=== PATIENT | male | born 1960 | race Caucasian/White ===

== ENCOUNTER 2016-10-05 07:29 | Day surgery (SDC) | payer MEDICARE, MEDICAID ==
[~2016-10-05 07:29] MED LIST: Buffered Lidocaine 1% SYRIN* 3 ML/SYR SYRINGE INTRADERM ONE
[2016-10-05] MEDS ORDERED: ceFAZolin VIAL(*) 1 GM VIAL ONE (07:45)
[2016-10-05] MEDS ORDERED: ceFAZolin 2 GM PREMIX(*) 2 GM/50 ML BAG IVPB ONE (07:46)
[2016-10-05] MEDS ORDERED: Dexamethasone IV* 4 MG/ML 1 ML (4 MG) ONE ×3 (08:59→09:05)
[2016-10-05] MEDS ORDERED: Bacitracin OINTMENT* 1 TUBE ONE ×2 (08:59→09:03)
[2016-10-05] MEDS ORDERED: Lidocaine 1% INJ* 10 MG/ML 30 ML SDV ONE (09:03)
[2016-10-05] MEDS ORDERED: Bupivacaine 0.5% SDV PF* 30 ML VIAL ONE (09:03)
[2016-10-05] MEDS ORDERED: Midazolam* 1 MG/ML 2 ML VIAL (2 MG) ONE (09:18)
[2016-10-05] MEDS ORDERED: fentaNYL* 50 MCG/ML 2 ML VIAL (100 MCG VIAL) ONE (09:18)
[2016-10-05] MEDS ORDERED: Propofol* 10 MG/ML 20 ML BTL IV PUSH ONE (10:08)
[2016-10-05 10:39] VITALS: BP 110/66
--- NOTE | 2016-10-05 16:02 | RAD ---
INDICATION: Excision of bone spur right great toe and fusion of the right great toe COMPARISONS: None relevant TECHNIQUE: Fluoroscopy was provided for a surgical procedure. Total fluoroscopy time is: 18 seconds FINDINGS: Spot images demonstrate fusion across the first interphalangeal joint IMPRESSION: FLUOROSCOPY WAS PROVIDED FOR A SURGICAL PROCEDURE CPT II Codes: 6045F
--- NOTE | 2016-10-05 21:48 | OP ---
DATE OF OPERATION: 10/05/16 - [facility] DATE OF : 64 SURGEON: Sameer Haddad DPM SUBMARINE OPERATOR: None. ANESTHESIOLOGIST: Jorge Booth DO ANESTHESIA: MAC with local. PRE-OP DIAGNOSES: 1. Chronic ulceration to the plantar aspect of his right great toe. 2. Bone spur and degenerative changes of the interphalangeal joint of the right great toe. POST-OP DIAGNOSES: 1. Chronic ulceration to the plantar aspect of his right great toe. 2. Bone spur and degenerative changes of the interphalangeal joint of the right great toe. OPERATIVE PROCEDURE: 1. Excision of bone spur from the plantar aspect of the interphalangeal joint of the right great toe. 2. Arthrodesis of the right great toe with screw fixation. PATHOLOGY: Degenerative bone and osteophyte proliferation. HEMOSTASIS: Pneumatic ankle tourniquet. ESTIMATED BLOOD LOSS: Less than 5 cc. SPECIMEN: Degenerative bone and bone spur from the plantar aspect of the right great toe. MATERIALS: A partially threaded cannulated 4.0 mm Becca screw. INDICATIONS: The patient with chronic ulceration in the plantar aspect of his right great toe with history of infection, which has been successfully treated by wound care center with Dr. Olea. The wound ulcer is currently closed and there is no active infection, but this has been an ongoing problem in recent radiographs, clinical findings and his peripheral neuropathy, there is excessive pressure in bone spur proliferation in the plantar aspect of the interphalangeal joint and surgery needed to attempt to decrease pressure and offload this area to prevent recurrence of the ulceration and possible infection. DESCRIPTION OF PROCEDURE: The patient was brought to the operating room, placed on the operating room table in the supine position. The anesthesia department administered IV sedation and a peripheral nerve block was performed about the right foot with a 1:1 mixture of 1% lidocaine plain and 0.5% Marcaine plain. The right foot was prepped and draped in the usual fashion. The right foot was then exsanguinated with an Esmarch bandage and the pneumatic ankle tourniquet was inflated to 250 mmHg about a well-padded right ankle. Attention was directed to the medial aspect of the right great toe, where a linear incision was made. The incision was deepened through subcutaneous tissues down to the periosteum at the interphalangeal joint with care being taken to retract neurovascular structures and to cauterize any superficial bleeders as needed. Next, the periosteum and capsule was incised and freed plantarly to allow for exposure and evaluation of this area, which was noted to have bony hypertrophy. The area was inspected. There was no accessory ossicle that was identified. Using a sagittal saw, homer and rongeur, the plantar aspect of the interphalangeal joint had resection of bone spur proliferation and burred smooth to create somewhat of a concavity in this area. The area was flushed with copious amounts of normal sterile saline. Next, dorsally a transverse incision was made over the interphalangeal joint and a dissection was carried down to the joint with care being taken to retract neurovascular structures and cauterize superficial bleeders as needed. Next, a transverse tenotomy- capsulotomy was performed to allow exposure of the joint. There was noted to be a fracture fragment and osteophyte dorsally on the joint and this was resected. There was noted to be a whitish residue throughout the joint consistent with his history of gout. Next, using the sagittal saw, the head of the proximal phalanx and base of the distal phalanx was resected in preparation for an arthrodesis procedure. Rongeur and homer was used to free hypertrophic margins. The surgical site was flushed with copious amounts of normal sterile saline. Next, a small incision was made distally in the digit and the K-wire was driven through the tip of the toe across the interphalangeal joint to the base of the proximal phalanx and the position was assessed with intraoperative C -arm. Initially, a Becca cannulated screw was used to have adequate length, this was removed and a 4.0 partially threaded cannulated screw from the [employer] set was used. This was driven into the proximal phalanx. The position was assessed with the C-arm and temporary fixation was removed and the arthrodesis site was noted to be very solid with no detectable motion or gapping. Again, a final correct positioning was assessed with the C-arm. The surgical site was flushed again with copious amounts of normal sterile saline. Subcutaneous tissues were reapproximated with 4-0 Polysorb and skin was closed with 5-0 nylon dorsally and 4-0 nylon to medial incision. The surgical site was then dressed with Xeroform gauze like sterile compressive dressing consisting of 4x4 gauze, Norberto, and light Coban wrap was applied. The pneumatic ankle tourniquet was deflated about the right ankle and a prompt hyperemic response was noted about all 5 digits of the patient's right foot. Having appeared to tolerate the procedure and anesthesia well, the patient was transported via cart from the operating room to Recovery in satisfactory condition with capillary refill less than 3 seconds to all digits of the right foot. The patient has been given very strict instructions to be mobilized wearing the Cam walking boot, weight only on his heel, assisted by a cane or crutches as needed and he has been cautioned that excessive ambulation and weightbearing could disrupt the surgical site and result in further ulceration or difficulty healing or any complications. The patient demonstrated verbal understanding of this. [id number]/CPS #: [id number] [place]
== END 2016-10-05 11:09 | disposition home or self-care (01) ==
LOC: OREAST 07:29
PROVIDERS: ATTEND Podiatrist Foot Surgery
DX: M20.41 Other hammer toe(s) (acquired), right foot (principal); L97.511 Non-pressure chronic ulcer of other part of right foot limited to breakdown of skin; J44.9 Chronic obstructive pulmonary disease, unspecified; I25.10 Atherosclerotic heart disease of native coronary artery without angina pectoris; I10 Essential (primary) hypertension; E78.5 Hyperlipidemia, unspecified; Z87.891 Personal history of nicotine dependence; G62.9 Polyneuropathy, unspecified
CPT/HCPCS: 88304; 88311; A9270-GY; C1713; C1776; J0690; J1100; J2001; J2250; J2704; J3010